=== PATIENT | female | born 1930 | race Caucasian/White ===

== ENCOUNTER 2016-06-19 14:01 | Outpatient (CLI) | payer MEDICARE, BC | END 2016-06-19 14:02 | disposition critical access hospital (66) | DX: M25.551 Pain in right hip (principal); W18.30XA Fall on same level, unspecified, initial encounter; Y92.481 Parking lot as the place of occurrence of the external cause | CPT/HCPCS: A0425; A0429 ==

== ENCOUNTER 2016-06-19 14:17 | Inpatient (IN) | payer MEDICARE, BC ==
[2016-06-19] MEDS ORDERED: MORPHINE 2 MG/ML SYRINGE IVP STA ×3 (14:51→18:09)
[2016-06-19] MEDS ORDERED: ONDANSETRON 4 MG/2 ML VIAL IVP STA (14:51)
[2016-06-19] MEDS ORDERED: ONDANSETRON 4 MG/2 ML VIAL ONE (14:53)
[2016-06-19] MEDS ORDERED: MORPHINE 2 MG/ML SYRINGE ONE ×4 (14:53→18:13)
[2016-06-19] MEDS ORDERED: MORPHINE 2 MG/ML SYRINGE IM STA (15:11)
[2016-06-19] MEDS ORDERED: ONDANSETRON ODT 4 MG TABLET TL STA (15:11)
[2016-06-19] MEDS ORDERED: ONDANSETRON ODT 4 MG TABLET ONE (15:14)
[2016-06-19] MEDS ORDERED: ACETAMINOPHEN 325 MG TABLET PO PRN (16:08)
[2016-06-19] MEDS ORDERED: LORazepam 2 MG/ML SYRINGE IVP PRN (16:45)
[2016-06-19] MEDS: SODIUM CHLORIDE FLUSH 0.9% 10 ML SYRINGE IVP SCH (19:23)
[2016-06-19] MEDS: SODIUM CHLORIDE 0.9% 1,000 ML IV SCH (19:23)
[2016-06-19] MEDS: INSULIN ASPART 300 UNIT/3 ML PEN SUBQ SCH ×2 (19:38→21:56)
[2016-06-19] MEDS: PRAZOSIN 1 MG CAPSULE PO SCH (20:25)
[2016-06-19] MEDS: rOPINIRole 0.25 MG TABLET PO SCH (20:25)
[2016-06-19] MEDS: METOPROLOL TARTRATE 50 MG TABLET PO SCH (20:25)
[2016-06-19] MEDS: HYDROmorphone 1 MG/ML SYRINGE IVP PRN (20:28)
[2016-06-20] MEDS: HYDROmorphone 1 MG/ML SYRINGE IVP PRN ×3 (02:25→20:31)
[2016-06-20] MEDS ORDERED: SODIUM CHLORIDE 0.9% 250 ML IV ONE (06:25)
[2016-06-20] MEDS ORDERED: FUROSEMIDE 20 MG/2 ML VIAL IVP STA (06:26)
[2016-06-20] MEDS: SODIUM CHLORIDE 0.9% 1,000 ML IV SCH ×2 (06:47→18:01)
[2016-06-20] MEDS: SODIUM CHLORIDE FLUSH 0.9% 10 ML SYRINGE IVP SCH ×3 (06:49→20:39)
[2016-06-20] MEDS: SODIUM CHLORIDE FLUSH 0.9% 10 ML SYRINGE IVP PRN (06:55)
[2016-06-20] MEDS: POLYETHYLENE GLYCOL 3350 17 GM PACKET PO SCH (08:36)
[2016-06-20] MEDS: FAMOTIDINE 20 MG TABLET PO SCH (08:37)
[2016-06-20] MEDS: hydroCHLOROthiazide 25 MG TABLET PO SCH (08:37)
[2016-06-20] MEDS: METOPROLOL TARTRATE 50 MG TABLET PO SCH ×2 (08:37→20:34)
[2016-06-20] MEDS: INSULIN ASPART 300 UNIT/3 ML PEN SUBQ SCH ×6 (08:38→20:32)
[2016-06-20] MEDS: rOPINIRole 0.25 MG TABLET PO SCH (20:34)
[2016-06-20] MEDS: PRAZOSIN 1 MG CAPSULE PO SCH (20:38)
[2016-06-21] MEDS: SODIUM CHLORIDE 0.9% 1,000 ML IV SCH (06:27)
[2016-06-21] MEDS: SODIUM CHLORIDE FLUSH 0.9% 10 ML SYRINGE IVP SCH ×3 (06:27→20:15)
[2016-06-21] MEDS ORDERED: LIDOCAINE-PF 2% 10 ML AMP SUBQ ONE (07:55)
[2016-06-21] MEDS ORDERED: PROPOFOL 200 MG/20 ML VIAL IVP ONE (07:55)
[2016-06-21] MEDS ORDERED: MIDAZOLAM 2 MG/2 ML VIAL IVP ONE (07:55)
[2016-06-21] MEDS ORDERED: ONDANSETRON 4 MG/2 ML VIAL IVP ONE (07:55)
[2016-06-21] MEDS ORDERED: fentaNYL 100 MCG/2 ML VIAL IVP ONE (07:55)
[2016-06-21] MEDS ORDERED: ceFAZolin 1 GM VIAL IV ONE (07:55)
[2016-06-21] MEDS ORDERED: DEXAMETHASONE 4 MG/ML VIAL IVP ONE (07:55)
[2016-06-21] MEDS ORDERED: LACTATED RINGERS 1,000 ML IV ONE ×2 (08:12)
[2016-06-21] MEDS ORDERED: LIDOCAINE MPF 1%-EPI 1:200000 30 ML VIAL SUBQ ONE ×2 (08:12→08:40)
[2016-06-21] MEDS ORDERED: BUPIVACAINE 0.25%-EPI 1:200000 PF 30 ML VIAL SUBQ ONE (08:40)
[2016-06-21] MEDS ORDERED: BISACODYL 10 MG SUPP PR PRN (08:47)
[2016-06-21] MEDS ORDERED: SODIUM CHLORIDE FLUSH 0.9% 10 ML SYRINGE IVP PRN (08:47)
[2016-06-21] MEDS ORDERED: ONDANSETRON 4 MG/2 ML VIAL IVP PRN (08:47)
[2016-06-21] MEDS: HYDROmorphone 1 MG/ML SYRINGE ONE ×2 (08:56→09:20)
[2016-06-21] MEDS: HYDROmorphone 1 MG/ML SYRINGE IVP PRN ×2 (10:42→17:04)
[2016-06-21] MEDS: SODIUM CHLORIDE 0.45% 1,000 ML IV SCH ×2 (10:55→22:28)
[2016-06-21] MEDS ORDERED: hydrALAZINE INJ 20 MG/ML VIAL IVP ONE (11:30)
[2016-06-21] MEDS: INSULIN ASPART 300 UNIT/3 ML PEN SUBQ SCH ×7 (13:09→20:05)
[2016-06-21] MEDS ORDERED: SODIUM CHLORIDE FLUSH 0.9% 10 ML SYRINGE IVP SCH (14:00)
[2016-06-21] MEDS: FAMOTIDINE 20 MG TABLET PO SCH (15:00)
[2016-06-21] MEDS: ALLOPURINOL 100 MG TABLET PO SCH (15:00)
[2016-06-21] MEDS: ASPIRIN 325 MG TABLET PO SCH ×2 (15:00→20:07)
[2016-06-21] MEDS: FUROSEMIDE 20 MG TABLET PO SCH (15:01)
[2016-06-21] MEDS: hydroCHLOROthiazide 25 MG TABLET PO SCH (15:01)
[2016-06-21] MEDS: POLYETHYLENE GLYCOL 3350 17 GM PACKET PO SCH (15:01)
[2016-06-21] MEDS: LISINOPRIL 5 MG TABLET PO SCH ×2 (15:01→19:39)
[2016-06-21] MEDS ORDERED: hydrALAZINE INJ 20 MG/ML VIAL IVP PRN (15:09)
[2016-06-21] MEDS ORDERED: FUROSEMIDE 20 MG/2 ML VIAL IVP ONE (16:00)
[2016-06-21] MEDS ORDERED: FUROSEMIDE 40 MG/4 ML VIAL ONE (17:11)
[2016-06-21] MEDS: ceFAZolin 2 GM/50 ML 50 ML IV SCH (17:22)
[2016-06-21] MEDS ORDERED: FUROSEMIDE 20 MG/2 ML VIAL IVP SCH (18:00)
[2016-06-21] MEDS: PRAZOSIN 1 MG CAPSULE PO SCH (19:39)
[2016-06-21] MEDS: rOPINIRole 0.25 MG TABLET PO SCH (20:07)
[2016-06-21] MEDS: ATORVASTATIN 10 MG TABLET PO SCH (20:07)
[2016-06-21] MEDS: METOPROLOL TARTRATE 50 MG TABLET PO SCH (20:07)
[2016-06-21] MEDS: OPTH EACHEYE SCH (20:09)
[2016-06-21] MEDS: LATANOPROST 0.005% EACHEYE SCH (20:09)
[2016-06-21] MEDS ORDERED: METOPROLOL TARTRATE 50 MG TABLET PO SCH (21:00)
[2016-06-22] MEDS: ceFAZolin 2 GM/50 ML 50 ML IV SCH (00:27)
[2016-06-22] MEDS: SODIUM CHLORIDE FLUSH 0.9% 10 ML SYRINGE IVP SCH ×3 (01:41→21:09)
[2016-06-22] MEDS: HYDROmorphone 1 MG/ML SYRINGE IVP PRN ×4 (01:55→17:14)
[2016-06-22] MEDS: INSULIN ASPART 300 UNIT/3 ML PEN SUBQ SCH ×7 (09:19→21:42)
[2016-06-22] MEDS: ALLOPURINOL 100 MG TABLET PO SCH (09:21)
[2016-06-22] MEDS: LISINOPRIL 5 MG TABLET PO SCH ×2 (09:21→21:01)
[2016-06-22] MEDS: SODIUM CHLORIDE FLUSH 0.9% 10 ML SYRINGE IVP PRN ×3 (09:22→17:47)
[2016-06-22] MEDS: ASPIRIN 325 MG TABLET PO SCH ×2 (09:25→21:02)
[2016-06-22] MEDS: hydroCHLOROthiazide 25 MG TABLET PO SCH (09:31)
[2016-06-22] MEDS: FUROSEMIDE 20 MG TABLET PO SCH ×2 (09:31→21:00)
[2016-06-22] MEDS: FAMOTIDINE 20 MG TABLET PO SCH (09:31)
[2016-06-22] MEDS: METOPROLOL TARTRATE 50 MG TABLET PO SCH ×2 (09:32→21:01)
[2016-06-22] MEDS: POLYETHYLENE GLYCOL 3350 17 GM PACKET PO SCH (09:35)
[2016-06-22] MEDS: SODIUM CHLORIDE 0.45% 1,000 ML IV SCH (12:29)
[2016-06-22] MEDS: OPTH EACHEYE SCH (21:00)
[2016-06-22] MEDS: LATANOPROST 0.005% EACHEYE SCH (21:00)
[2016-06-22] MEDS: rOPINIRole 0.25 MG TABLET PO SCH (21:01)
[2016-06-22] MEDS: PRAZOSIN 1 MG CAPSULE PO SCH (21:01)
[2016-06-22] MEDS: ATORVASTATIN 10 MG TABLET PO SCH (21:01)
[2016-06-23] MEDS ORDERED: HYDROmorphone 2 MG TABLET ONE (14:02)
[2016-06-23] MEDS: INSULIN ASPART 300 UNIT/3 ML PEN SUBQ SCH ×7 (17:15→21:27)
[2016-06-23] MEDS: SODIUM CHLORIDE FLUSH 0.9% 10 ML SYRINGE IVP SCH ×3 (17:15→21:28)
[2016-06-23] MEDS: hydroCHLOROthiazide 25 MG TABLET PO SCH (17:16)
[2016-06-23] MEDS: LISINOPRIL 5 MG TABLET PO SCH ×2 (17:16→21:29)
[2016-06-23] MEDS: FUROSEMIDE 20 MG TABLET PO SCH ×2 (17:16→21:29)
[2016-06-23] MEDS: METOPROLOL TARTRATE 50 MG TABLET PO SCH ×2 (17:16→21:28)
[2016-06-23] MEDS: FAMOTIDINE 20 MG TABLET PO SCH (17:16)
[2016-06-23] MEDS: POLYETHYLENE GLYCOL 3350 17 GM PACKET PO SCH (17:16)
[2016-06-23] MEDS: ASPIRIN 325 MG TABLET PO SCH ×2 (17:16→21:29)
[2016-06-23] MEDS: ALLOPURINOL 100 MG TABLET PO SCH (17:16)
[2016-06-23] MEDS: PRAZOSIN 1 MG CAPSULE PO SCH (21:28)
[2016-06-23] MEDS: ATORVASTATIN 10 MG TABLET PO SCH (21:28)
[2016-06-23] MEDS: LATANOPROST 0.005% EACHEYE SCH (21:29)
[2016-06-23] MEDS: OPTH EACHEYE SCH (21:29)
[2016-06-23] MEDS: rOPINIRole 0.25 MG TABLET PO SCH (21:29)
[2016-06-24] MEDS: SODIUM CHLORIDE FLUSH 0.9% 10 ML SYRINGE IVP SCH ×3 (07:33→20:52)
[2016-06-24] MEDS ORDERED: MAGNESIUM HYDROXIDE 2,400 MG/30 ML UDC PO ONE (08:30)
[2016-06-24] MEDS ORDERED: DOCUSATE SODIUM 250 MG CAPSULE PO ONE (08:30)
[2016-06-24] MEDS: LISINOPRIL 5 MG TABLET PO SCH ×2 (08:48→20:50)
[2016-06-24] MEDS: ALLOPURINOL 100 MG TABLET PO SCH (08:48)
[2016-06-24] MEDS: ASPIRIN 325 MG TABLET PO SCH ×2 (08:48→20:50)
[2016-06-24] MEDS: hydroCHLOROthiazide 25 MG TABLET PO SCH (08:48)
[2016-06-24] MEDS: METOPROLOL TARTRATE 50 MG TABLET PO SCH ×2 (08:49→20:47)
[2016-06-24] MEDS: FUROSEMIDE 20 MG TABLET PO SCH ×2 (08:49→20:50)
[2016-06-24] MEDS: FAMOTIDINE 20 MG TABLET PO SCH (08:49)
[2016-06-24] MEDS: POLYETHYLENE GLYCOL 3350 17 GM PACKET PO SCH (08:51)
[2016-06-24] MEDS: INSULIN ASPART 300 UNIT/3 ML PEN SUBQ SCH ×6 (08:51→20:57)
[2016-06-24] MEDS: SENNA 8.6 MG TABLET PO PRN (08:51)
[2016-06-24] MEDS: HYDROmorphone 1 MG/ML SYRINGE IVP PRN (10:35)
[2016-06-24] MEDS: ACETAMINOPHEN 325 MG TABLET PO PRN (10:36)
[2016-06-24] MEDS ORDERED: INSULIN ASPART 300 UNIT/3 ML PEN SUBQ SCH (12:32)
[2016-06-24] MEDS: ATORVASTATIN 10 MG TABLET PO SCH (20:50)
[2016-06-24] MEDS: PRAZOSIN 1 MG CAPSULE PO SCH (20:50)
[2016-06-24] MEDS: rOPINIRole 0.25 MG TABLET PO SCH (20:50)
[2016-06-24] MEDS: LATANOPROST 0.005% EACHEYE SCH (20:56)
[2016-06-24] MEDS: OPTH EACHEYE SCH (20:56)
[2016-06-25] MEDS: SODIUM CHLORIDE FLUSH 0.9% 10 ML SYRINGE IVP SCH ×3 (05:36→21:19)
[2016-06-25] MEDS: HYDROmorphone 2 MG TABLET PO PRN (08:00)
[2016-06-25] MEDS: ACETAMINOPHEN 325 MG TABLET PO PRN (08:00)
[2016-06-25] MEDS ORDERED: MAGNESIUM HYDROXIDE 2,400 MG/30 ML UDC PO ONE (09:28)
[2016-06-25] MEDS: INSULIN ASPART 300 UNIT/3 ML PEN SUBQ SCH ×6 (10:24→22:15)
[2016-06-25] MEDS: POLYETHYLENE GLYCOL 3350 17 GM PACKET PO SCH (10:26)
[2016-06-25] MEDS: ASPIRIN 325 MG TABLET PO SCH ×2 (10:26→21:10)
[2016-06-25] MEDS: DOCUSATE SODIUM 250 MG CAPSULE PO SCH (10:27)
[2016-06-25] MEDS: METOPROLOL TARTRATE 50 MG TABLET PO SCH ×2 (10:31→21:10)
[2016-06-25] MEDS: SENNA 8.6 MG TABLET PO PRN (10:32)
[2016-06-25] MEDS: ALLOPURINOL 100 MG TABLET PO SCH (10:32)
[2016-06-25] MEDS: LISINOPRIL 5 MG TABLET PO SCH ×2 (10:33→21:10)
[2016-06-25] MEDS: hydroCHLOROthiazide 25 MG TABLET PO SCH (10:33)
[2016-06-25] MEDS: FAMOTIDINE 20 MG TABLET PO SCH (10:33)
[2016-06-25] MEDS: FUROSEMIDE 20 MG TABLET PO SCH ×2 (10:33→21:10)
[2016-06-25] MEDS: HYDROmorphone 1 MG/ML SYRINGE IVP PRN ×2 (10:57→21:27)
[2016-06-25] MEDS: SODIUM CHLORIDE FLUSH 0.9% 10 ML SYRINGE IVP PRN ×2 (10:57→21:28)
[2016-06-25] MEDS: hydrALAZINE INJ 20 MG/ML VIAL IVP PRN (17:21)
[2016-06-25] MEDS: ATORVASTATIN 10 MG TABLET PO SCH (21:10)
[2016-06-25] MEDS: rOPINIRole 0.25 MG TABLET PO SCH (21:10)
[2016-06-25] MEDS: PRAZOSIN 1 MG CAPSULE PO SCH (21:18)
[2016-06-25] MEDS: OPTH EACHEYE SCH (21:18)
[2016-06-25] MEDS: LATANOPROST 0.005% EACHEYE SCH (21:18)
[2016-06-26] MEDS: SODIUM CHLORIDE FLUSH 0.9% 10 ML SYRINGE IVP SCH ×3 (06:40→20:28)
[2016-06-26] MEDS: hydrALAZINE INJ 20 MG/ML VIAL IVP PRN (07:40)
[2016-06-26] MEDS: INSULIN ASPART 300 UNIT/3 ML PEN SUBQ SCH ×7 (07:56→21:42)
[2016-06-26] MEDS: DOCUSATE SODIUM 250 MG CAPSULE PO SCH (08:11)
[2016-06-26] MEDS: FAMOTIDINE 20 MG TABLET PO SCH (08:11)
[2016-06-26] MEDS: ASPIRIN 325 MG TABLET PO SCH ×2 (08:11→20:06)
[2016-06-26] MEDS: FUROSEMIDE 20 MG TABLET PO SCH ×2 (08:11→20:06)
[2016-06-26] MEDS: METOPROLOL TARTRATE 50 MG TABLET PO SCH ×2 (08:12→20:07)
[2016-06-26] MEDS: hydroCHLOROthiazide 25 MG TABLET PO SCH (08:12)
[2016-06-26] MEDS: ALLOPURINOL 100 MG TABLET PO SCH (08:12)
[2016-06-26] MEDS: LISINOPRIL 5 MG TABLET PO SCH ×2 (08:12→20:07)
[2016-06-26] MEDS: POLYETHYLENE GLYCOL 3350 17 GM PACKET PO SCH (08:12)
[2016-06-26] MEDS: HYDROmorphone 1 MG/ML SYRINGE IVP PRN ×3 (08:19→17:21)
[2016-06-26] MEDS ORDERED: INSULIN GLARGINE 300 UNIT/3 ML PEN SUBQ SCH (11:30)
[2016-06-26] MEDS ORDERED: SODIUM CHLORIDE 0.45% 1,000 ML IV SCH (15:00)
[2016-06-26] MEDS ORDERED: PRAZOSIN 1 MG CAPSULE PO SCH (18:00)
[2016-06-26] MEDS: rOPINIRole 0.25 MG TABLET PO SCH (20:06)
[2016-06-26] MEDS: ATORVASTATIN 10 MG TABLET PO SCH (20:06)
[2016-06-26] MEDS: PRAZOSIN 1 MG CAPSULE PO SCH (20:07)
[2016-06-26] MEDS: LATANOPROST 0.005% EACHEYE SCH (20:14)
[2016-06-26] MEDS: OPTH EACHEYE SCH (20:14)
[2016-06-27] MEDS: SODIUM CHLORIDE FLUSH 0.9% 10 ML SYRINGE IVP PRN (00:05)
[2016-06-27] MEDS: SODIUM CHLORIDE FLUSH 0.9% 10 ML SYRINGE IVP SCH (04:58)
[2016-06-27] MEDS: HYDROmorphone 1 MG/ML SYRINGE IVP PRN (04:58)
[2016-06-27] MEDS: hydroCHLOROthiazide 25 MG TABLET PO SCH (08:08)
[2016-06-27] MEDS: HYDROmorphone 2 MG TABLET PO PRN ×3 (08:08→15:35)
[2016-06-27] MEDS: METOPROLOL TARTRATE 50 MG TABLET PO SCH (08:09)
[2016-06-27] MEDS: LISINOPRIL 5 MG TABLET PO SCH (08:09)
[2016-06-27] MEDS: ASPIRIN 325 MG TABLET PO SCH (08:09)
[2016-06-27] MEDS: FUROSEMIDE 20 MG TABLET PO SCH (08:09)
[2016-06-27] MEDS: ALLOPURINOL 100 MG TABLET PO SCH (08:09)
[2016-06-27] MEDS: INSULIN ASPART 300 UNIT/3 ML PEN SUBQ SCH ×4 (08:10→12:07)
[2016-06-27] MEDS: FAMOTIDINE 20 MG TABLET PO SCH (08:10)
[2016-06-27] MEDS: POLYETHYLENE GLYCOL 3350 17 GM PACKET PO SCH (08:10)
[2016-06-27] MEDS: DOCUSATE SODIUM 250 MG CAPSULE PO SCH (08:10)
[2016-06-27] MEDS: PRAZOSIN 1 MG CAPSULE PO SCH (08:12)
== END 2016-06-27 15:35 | DRG 481 ==
PROC: 0QS636Z Reposition Right Upper Femur with Intramedullary Internal Fixation Device, Percutaneous Approach (ICD-10-PCS; principal; 2016-06-21 07:30)
DX: S72.141A Displaced intertrochanteric fracture of right femur, initial encounter for closed fracture (principal); N17.9 Acute kidney failure, unspecified; D62 Acute posthemorrhagic anemia; M96.89 Other intraoperative and postprocedural complications and disorders of the musculoskeletal system; I10 Essential (primary) hypertension; E11.9 Type 2 diabetes mellitus without complications; I50.1 Left ventricular failure, unspecified; S42.224A 2-part nondisplaced fracture of surgical neck of right humerus, initial encounter for closed fracture; S72.121A Displaced fracture of lesser trochanter of right femur, initial encounter for closed fracture; W18.30XA Fall on same level, unspecified, initial encounter; Y92.481 Parking lot as the place of occurrence of the external cause; R55 Syncope and collapse; E87.5 Hyperkalemia; M75.01 Adhesive capsulitis of right shoulder; I13.10 Hypertensive heart and chronic kidney disease without heart failure, with stage 1 through stage 4 chronic kidney disease, or unspecified chronic kidney disease; E11.22 Type 2 diabetes mellitus with diabetic chronic kidney disease; N18.3 Chronic kidney disease, stage 3 (moderate); E11.65 Type 2 diabetes mellitus with hyperglycemia; E78.2 Mixed hyperlipidemia; E66.09 Other obesity due to excess calories; I35.0 Nonrheumatic aortic (valve) stenosis; F32.89 Other specified depressive episodes; G25.81 Restless legs syndrome; I65.23 Occlusion and stenosis of bilateral carotid arteries; F41.9 Anxiety disorder, unspecified; M15.0 Primary generalized (osteo)arthritis; Y83.8 Other surgical procedures as the cause of abnormal reaction of the patient, or of later complication, without mention of misadventure at the time of the procedure; Y92.234 Operating room of hospital as the place of occurrence of the external cause; Z66 Do not resuscitate; Z79.82 Long term (current) use of aspirin; Z68.33 Body mass index [BMI] 33.0-33.9, adult; Z87.891 Personal history of nicotine dependence

== ENCOUNTER 2016-06-30 08:00 | Outpatient (CLI) | payer BC, MEDICARE, OTHER | END 2016-06-30 23:59 | DX: N18.9 Chronic kidney disease, unspecified (principal); D64.9 Anemia, unspecified; E83.42 Hypomagnesemia; M1A.9XX0 Chronic gout, unspecified, without tophus (tophi) ==

== ENCOUNTER 2016-07-03 | Outpatient (CLI) | payer MEDICARE, BC | END 2016-07-03 14:09 | disposition critical access hospital (66) | DX: R29.810 Facial weakness (principal) | CPT/HCPCS: A0425; A0429 ==

== ENCOUNTER 2016-07-03 14:11 | Observation (INO) | payer MEDICARE, BC ==
[2016-07-03] MEDS ORDERED: SODIUM CHLORIDE 0.9% 1,000 ML IV ONE (16:14)
[2016-07-03] MEDS ORDERED: SODIUM CHLORIDE FLUSH 0.9% 10 ML SYRINGE IVP PRN (16:45)
[2016-07-03] MEDS ORDERED: ONDANSETRON ODT 4 MG TABLET TL PRN (16:45)
[2016-07-03] MEDS ORDERED: DEXTROSE 50% ABBOJECT 25 GM/50 ML SYRINGE IVP PRN (18:38)
[2016-07-03] MEDS ORDERED: DEXTROSE GEL 37.5 GM TUBE PO PRN (18:38)
[2016-07-03] MEDS ORDERED: DEXTROSE 5% 1,000 ML IV PRN (18:38)
[2016-07-03] MEDS ORDERED: GLUCAGON 1 MG/ML VIAL SUBQ PRN (18:38)
[2016-07-03] MEDS: SODIUM CHLORIDE 0.9% 1,000 ML IV SCH ×2 (18:54→18:57)
[2016-07-03] MEDS ORDERED: MIN OIL/DIMETHICON/COCONUT OIL 92 GM TUBE TOP PRN (19:35)
[2016-07-03] MEDS: rOPINIRole 0.25 MG TABLET PO SCH (21:39)
[2016-07-03] MEDS: ATORVASTATIN 10 MG TABLET PO SCH (21:40)
[2016-07-03] MEDS: NITROFURANTOIN MACRO 100 MG CAPSULE PO SCH (21:40)
[2016-07-03] MEDS: LATANOPROST 0.005% OPHTH DROPS EACHEYE SCH (21:40)
[2016-07-03] MEDS: INSULIN ASPART 300 UNIT/3 ML PEN SUBQ SCH (21:40)
[2016-07-03] MEDS: PRAZOSIN 1 MG CAPSULE PO SCH (21:40)
[2016-07-03] MEDS: METOPROLOL TARTRATE 50 MG TABLET PO SCH (21:41)
[2016-07-03] MEDS: SODIUM CHLORIDE FLUSH 0.9% 10 ML SYRINGE IVP SCH (21:44)
[2016-07-03] MEDS: HYDROcod/ACETAM 5/325 MG TABLET PO PRN (21:48)
[2016-07-04] MEDS: ACETAMINOPHEN 325 MG TABLET PO PRN ×2 (00:26→15:52)
[2016-07-04] MEDS: HYDROcod/ACETAM 5/325 MG TABLET PO PRN ×5 (04:17→22:42)
[2016-07-04] MEDS: SODIUM CHLORIDE 0.9% 1,000 ML IV SCH ×2 (04:17→15:30)
[2016-07-04] MEDS: SODIUM CHLORIDE FLUSH 0.9% 10 ML SYRINGE IVP SCH ×3 (06:40→22:18)
[2016-07-04] MEDS ORDERED: ENOXAPARIN 40 MG/0.4 ML SYRINGE SUBQ SCH (09:00)
[2016-07-04] MEDS: INSULIN ASPART 300 UNIT/3 ML PEN SUBQ SCH ×4 (09:06→22:17)
[2016-07-04] MEDS: ONDANSETRON 4 MG/2 ML VIAL IVP PRN (09:35)
[2016-07-04] MEDS: ALLOPURINOL 100 MG TABLET PO SCH (11:02)
[2016-07-04] MEDS: NITROFURANTOIN MACRO 100 MG CAPSULE PO SCH ×2 (11:02→22:41)
[2016-07-04] MEDS: PRAZOSIN 1 MG CAPSULE PO SCH ×2 (11:02→22:41)
[2016-07-04] MEDS: DOCUSATE SODIUM 250 MG CAPSULE PO SCH (11:02)
[2016-07-04] MEDS: SENNA 8.6 MG TABLET PO SCH (11:03)
[2016-07-04] MEDS: METOPROLOL TARTRATE 50 MG TABLET PO SCH ×2 (11:03→22:45)
[2016-07-04] MEDS: POLYETHYLENE GLYCOL 3350 17 GM PACKET PO SCH (11:03)
[2016-07-04] MEDS: ENOXAPARIN 30 MG/0.3 ML SYRINGE SUBQ SCH (11:04)
[2016-07-04] MEDS: ASPIRIN CHEW 81 MG TABLET PO SCH (11:04)
[2016-07-04] MEDS ORDERED: PROCHLORPERAZINE 10 MG/2 ML VIAL IVP PRN (12:29)
[2016-07-04] MEDS ORDERED: PROCHLORPERAZINE 5 MG TABLET PO PRN (12:29)
[2016-07-04] MEDS: KETOROLAC 15 MG/ML VIAL IVP PRN (20:58)
[2016-07-04] MEDS ORDERED: MIRTAZAPINE 15 MG TABLET PO SCH (21:00)
[2016-07-04] MEDS: LATANOPROST 0.005% OPHTH DROPS EACHEYE SCH (22:40)
[2016-07-04] MEDS: ATORVASTATIN 10 MG TABLET PO SCH (22:40)
[2016-07-04] MEDS: rOPINIRole 0.25 MG TABLET PO SCH (22:41)
[2016-07-05] MEDS: SODIUM CHLORIDE 0.9% 1,000 ML IV SCH ×2 (00:13→01:07)
[2016-07-05] MEDS: SODIUM CHLORIDE FLUSH 0.9% 10 ML SYRINGE IVP SCH ×2 (07:10→12:58)
[2016-07-05] MEDS: ONDANSETRON 4 MG/2 ML VIAL IVP PRN (07:37)
[2016-07-05] MEDS: KETOROLAC 15 MG/ML VIAL IVP PRN (07:38)
[2016-07-05] MEDS: HYDROcod/ACETAM 5/325 MG TABLET PO PRN ×2 (07:38→12:25)
[2016-07-05] MEDS: INSULIN ASPART 300 UNIT/3 ML PEN SUBQ SCH ×2 (07:46→12:25)
[2016-07-05] MEDS: SENNA 8.6 MG TABLET PO SCH (09:13)
[2016-07-05] MEDS: NITROFURANTOIN MACRO 100 MG CAPSULE PO SCH (09:13)
[2016-07-05] MEDS: ENOXAPARIN 30 MG/0.3 ML SYRINGE SUBQ SCH (09:13)
[2016-07-05] MEDS: ALLOPURINOL 100 MG TABLET PO SCH (09:14)
[2016-07-05] MEDS: DOCUSATE SODIUM 250 MG CAPSULE PO SCH (09:14)
[2016-07-05] MEDS: METOPROLOL TARTRATE 50 MG TABLET PO SCH (09:14)
[2016-07-05] MEDS: PRAZOSIN 1 MG CAPSULE PO SCH (09:14)
[2016-07-05] MEDS: POLYETHYLENE GLYCOL 3350 17 GM PACKET PO SCH (09:15)
[2016-07-05] MEDS: ASPIRIN CHEW 81 MG TABLET PO SCH (09:15)
[2016-07-05] MEDS ORDERED: CIPROFLOXACIN 250 MG TABLET PO SCH (12:00)
== END 2016-07-05 15:25 ==
DX: N17.9 Acute kidney failure, unspecified (principal); E86.0 Dehydration; T50.2X5A Adverse effect of carbonic-anhydrase inhibitors, benzothiadiazides and other diuretics, initial encounter; I12.9 Hypertensive chronic kidney disease with stage 1 through stage 4 chronic kidney disease, or unspecified chronic kidney disease; N18.3 Chronic kidney disease, stage 3 (moderate); N30.01 Acute cystitis with hematuria; B96.20 Unspecified Escherichia coli [E. coli] as the cause of diseases classified elsewhere; B96.1 Klebsiella pneumoniae [K. pneumoniae] as the cause of diseases classified elsewhere; E11.65 Type 2 diabetes mellitus with hyperglycemia; E11.42 Type 2 diabetes mellitus with diabetic polyneuropathy; S72.141D Displaced intertrochanteric fracture of right femur, subsequent encounter for closed fracture with routine healing; S72.121D Displaced fracture of lesser trochanter of right femur, subsequent encounter for closed fracture with routine healing; W19.XXXD Unspecified fall, subsequent encounter; F43.21 Adjustment disorder with depressed mood; I35.0 Nonrheumatic aortic (valve) stenosis; R29.810 Facial weakness; S42.201D Unspecified fracture of upper end of right humerus, subsequent encounter for fracture with routine healing; Y83.8 Other surgical procedures as the cause of abnormal reaction of the patient, or of later complication, without mention of misadventure at the time of the procedure; E87.1 Hypo-osmolality and hyponatremia; E78.5 Hyperlipidemia, unspecified; F41.9 Anxiety disorder, unspecified; G25.81 Restless legs syndrome; R32 Unspecified urinary incontinence; Z16.23 Resistance to quinolones and fluoroquinolones; Z79.82 Long term (current) use of aspirin; Z87.891 Personal history of nicotine dependence; Z66 Do not resuscitate
CPT/HCPCS: 36415; 70450; 73060; 73501; 80048; 80053; 81001; 83036; 83690; 83880; 84484; 85025; 87077; 87086; 87181; 93005; 93010; 96361; 96372; 96374; 96375; 96376; 97163; 99284; 99285; A6250; A9270; G0378; G8978; G8979; J1650

== ENCOUNTER 2016-07-11 | Outpatient (CLI) | payer MEDICARE, OTHER | END 2016-07-11 10:01 | disposition home or self-care (01) ==

== ENCOUNTER 2016-07-12 18:35 | Outpatient (CLI) | payer BC, MEDICARE, OTHER | END 2016-07-12 18:36 | disposition home or self-care (01) | DX: I10 Essential (primary) hypertension (principal); N18.9 Chronic kidney disease, unspecified ==

== ENCOUNTER 2016-07-16 12:51 | Outpatient (CLI) | payer BC, MEDICARE, OTHER | END 2016-07-16 12:52 | disposition home or self-care (01) | DX: N39.0 Urinary tract infection, site not specified (principal) ==

== ENCOUNTER 2016-08-25 08:00 | Outpatient (CLI) | payer MEDICARE, OTHER | END 2016-08-25 23:59 | DX: N18.9 Chronic kidney disease, unspecified (principal); D64.9 Anemia, unspecified; M1A.9XX0 Chronic gout, unspecified, without tophus (tophi); F32.9 Major depressive disorder, single episode, unspecified; E83.49 Other disorders of magnesium metabolism; E55.9 Vitamin D deficiency, unspecified ==

== ENCOUNTER 2016-09-07 08:40 | Outpatient (CLI) | payer MEDICARE, OTHER | END 2016-09-07 08:41 | disposition home or self-care (01) | DX: N18.9 Chronic kidney disease, unspecified (principal); E11.9 Type 2 diabetes mellitus without complications; G25.81 Restless legs syndrome; M1A.9XX0 Chronic gout, unspecified, without tophus (tophi) ==

== ENCOUNTER 2016-09-24 12:20 | Outpatient (CLI) | payer OTHER | END 2016-09-24 12:21 | disposition home or self-care (01) | DX: M1A.9XX0 Chronic gout, unspecified, without tophus (tophi) (principal) ==

== ENCOUNTER 2017-12-18 10:40 | Outpatient (CLI) | payer MEDICARE, BC ==
--- NOTE | 2017-12-18 16:35 | CONSULTATION NOTE ---
Palliative Care Consultation - Referral Referring Provider: Dr Jacqueline Abraham Time of Visit: 12/18/2017. 10:40 - 11:30 Referral setting: Assisted living (Seen in home setting due to taxing and considerable effort required to leave the home due to immobility and being bed bound secondary to advancing dementia, anorexia, and debility.) Referral Reason: Anorexia, significant weight loss, functional decline - Information Sources Records reviewed: RN notes reviewed, Previous records reviewed History/Review of Systems obtained from: Family, Caregiver, Nursing Exam limitations: Clinical condition (Non-rousable; dementia) - History of Present Illness Brief History of Present Illness: -87 year old woman was on hospice from July 13, 2017 to October 30, 2017. -She was originally admitted to Hospice with diagnoses of malnutrition, DMII, CKD III, dementia, depression, HTN and non-rheumatic aortic valve stenosis, and chronic pain syndrome, osteopenia. -Prior to the June admission to Hospice, whe had a rapid 10-lb weight loss in one month, and dark, blackish stool, as well as buttock/cocyx excoriation and deeptissue pressure wound to R heel. -Omeprazole 20mg resolved the black stool issue,The buttock/coccyx wound did not resolve to due continued incontinence and total bed-bound statue. R heel injury did resolve with wound care and improved caloric intake. -Patient stabilized and improved sufficiently so that she was discharged from Hospice October 2017. -Patient unfortunately has had a steady weight loss since discharging from Hospice. -She has lost 15.8% (22.9 lbs) of her weight since September (less than 3 months), including 10 lbs in the past week. See ROS for details. -Today patient is in bed with HOB elevated. She is profoundly somnolent and non- rousable by voice or gentle touching. At only one point she made an unintelligible verbal response. Her eyes remained closed the entire visit. -Lips are dry, hands and feet are warm, no mottling of skin. -Caregivers and nursing report refusing food in the past few days; prior to that she was eating only a few mouthfuls at each meal, refusing the rest. -Last week she was alert, had animated conversations with the caregiver. She does spend most of her time in her room. -For the past few days she has become non-responsive, refusing help or interaction. -She made the statement to one of the caregivers, "Just let me ." -Back on 07/04/2016 during a hospitalization, the hospitalist noted she was quiet , depressed, wished to be left alone; "she was old enough, had had a good life and that all of this rigamarole was too much. just let her go." Medical/Surgical History - Past Medical History Cardiovascular: reports: Hypertension, High cholesterol, Valve disorder (non- rheumatic aortic valve stenosis) Respiratory: reports: Shortness of breath Neuro: Dementia Endocrine/Autoimmune: reports: Type 2 diabetes GI: reports: None : reports: Incontinence HEENT: reports: Chronic vision loss, Chronic hearing loss Psych: reports: Depression, Anxiety Musculoskeletal: reports: Osteoarthritis, Osteopenia, Gout, Other (chronic pain syndrome) Derm: reports: None MRSA Hx?: No - Past Surgical History Ortho: reports: Hip replacement HEENT: reports: Tonsil/Adenoidectomy - Substance History Tobacco Details: Cigarettes (Smoked briefly age 29. No alcohol.) Social History - Living Situation Living arrangement: Assisted living ([facility]) Living Situation: With caregiver(s) Support System: Meredith Gonzales, daughter/DPOA, lives in [place]. [phone]. She is very involved in patient's care but unable to visit as frequently due to shoulder injury, or possibly hip injury, and some complications. Rosette Gonzales, daughter. H: [phone]. M: [phone]. Family History - Family History Family History Comment/Other: Mother age unknown, bilateral pneumonia. Father age 65, hit by drunk patient transportation driver. Medications/Allergies - Medications Home Medications: Ambulatory Orders Medication Instructions Recorded Confirmed Latanoprost [Xalatan] 1 drops EACHEYE QPM 06/19/16 12/18/17 Metoprolol Tartrate [Lopressor] 50 mg PO BID 06/19/16 12/18/17 Acetaminophen [Tylenol] 650 mg PO Q6H PRN 07/03/16 12/18/17 Senna [Senokot] 8.6 mg PO DAILY 07/03/16 12/18/17 Acetaminophen 650 mg RC Q6H PRN 12/18/17 12/18/17 Acetaminophen [Tylenol] 650 mg PO BID 12/18/17 12/18/17 Alum Mag Simeth Susp 30 ml PO Q4H PRN 12/18/17 Bisacodyl Supp [Dulcolax Supp] 10 mg [place] DAILY PRN 12/18/17 12/18/17 Gabapentin 600 mg PO BID 12/18/17 12/18/17 Guaifenesin/Dextromethorphan 5 ml PO Q6H PRN 12/18/17 12/18/17 [Tussin Dm Cough Syrup] Haloperidol Oral Soln [Haldol Oral 0.5 ml PO Q6H PRN 12/18/17 12/18/17 Soln] Hyoscyamine [Levsin] 0.125 mg SL Q4H PRN 12/18/17 12/18/17 LORazepam [Ativan] 0.5 mg PO Q6H PRN 12/18/17 12/18/17 Lactose-Reduced Food [Ensure 1 ea PO TID 12/18/17 12/18/17 Compact] Loperamide [Imodium] 4 mg PO PRN PRN MDD 8 tabs 12/18/17 12/18/17 Magnesium Hydroxide [Milk of 30 ml PO DAILY PRN 12/18/17 12/18/17 Magnesia] Menthol/Zinc Oxide [Calmoseptine 1 ea TOP BID MDD until resolved 12/18/17 Ointment] Morphine Sulfate [Morphine Sulf 0.25 ml PO Q4H PRN 12/18/17 12/18/17 Oral (Roxanol)] Nystatin 1 each TOP BID PRN 12/18/17 12/18/17 Omeprazole [PriLOSEC] 20 mg PO DAILY 12/18/17 12/18/17 Ondansetron [Ondansetron Odt] 4 mg PO Q6H PRN 12/18/17 12/18/17 Oxymetazoline HCl [Afrin] 1 sprays NS BID PRN 12/18/17 12/18/17 Polyethylene Glycol 3350 [Miralax] 17 g PO DAILY 12/18/17 12/18/17 Sertraline [Zoloft] 25 mg PO DAILY 12/18/17 12/18/17 - Allergies Allergies/Adverse Reactions: Allergies Allergy/AdvReac Type Severity Reaction Status Date / Time No Known Drug Allergies Allergy Verified 06/19/16 14:20 Review of Systems - Constitutional Constitutional: reports: Fatigue, Weakness, Weight loss (15.8% weight loss in less than 3 months (22.9 lbs), including 10 lbs in the past week. 122 lbs . 132 lbs 12/10/17. 130.3 lbs 12/03/17. 138.8 lbs 11/12/17. 138 bs 10/29/17. 143 lbs 10/22/17. 147 lbs 10/15/17. 145.4 lbs 10/08/17. 144.9 lbs 10/01/17.) - Ears, Nose & Throat Ears, Nose & Throat: reports: Hearing loss, Dry mouth - Cardiovascular Cardiovascular: reports: Decr. exercise tolerance - Gastrointestinal Gastrointestinal: denies: Constipation - Genitourinary Genitourinary: reports: Incontinence - Musculoskeletal Musculoskeletal: reports: Transfer issues, Other (Bedbound) - Neurological Neurological: reports: General weakness, Memory problems Physical Exam - Vital Signs Temperature: 96.7 F Pulse Rate: 76 O2 Saturation: 95 (room air) Blood Pressure: 132/75 - Physical Exam General Appearance: positive: Lethargic, Nonresponsive Eyes Bilateral: positive: Other (Eyes closed during entire visit) ENT: positive: Dry mucous membranes Neck: positive: Trachea midline Cardiovascular: positive: Regular rate & rhythm, Systolic murmur (2/6) Respiratory: positive: No respiratory distress, Diminished throughout Abdomen: positive: Non-tender, Soft, Nml bowel sounds, Other (solid, dark hunk of matter, or a growth, in umbilicus. Unable to remove it). negative: Distended Skin: positive: Dryness. negative: Mottled Extremities: negative: No pedal edema Neurologic/Psychiatric: positive: Disoriented to person, Disoriented to place, Disoriented to time, Other (Somnolent; non-rousable) Palliative Care - POLST Patient has POLST: Yes POLST Status: DNR, Comfort Measures Drowsiness/Sedation: Severe (7-10), Comment (Non-rousabe) Anorexia: Severe (7-10), Weight loss (15.8% decline in less than 3 months. See ROS.) Constipation: No Performance Status: Bed bound. Significant decline in function and LOC: non-verbal, lethargy, somnolent, refusing oral intake in past few days. - Palliative Care Discussion: Per the patient's daughter/POA, Meredith, she used to have animated conversations , now she doesn't speak, doesn't want any help with eating. Caregiver reports that the patient stated to leave her alone, let her . Daughter was surprised to hear this. However, the patient stated the same sentiments to a hospitalist back on 07/04/2016. The patient was just recently on Hospice up until October 30, 2017, having been discharged after she gained weight and her condition improved. Unfortunately her weight has steadily declined since then, and then precipitously over the past week, and especially during the past few days when she has refused all food /oral intake and become lethargic and largely unresponsive. The daughter agrees and approves of readmitting her mother back to Hospice. Impression and Recommendations - Palliative Care Impression: 87 year old woman, formerly on Hospice but discharged in October 2017 after weight gain and an improvement in her condition, has significantly declined, and also lost 15.8% of her weight in less than 3 months. She is bedbound, has had altered level of consciousness for a few days, and does not accept food or drink. Palliative care recommends transition back to Hospice; this meets family 's goals of keeping her comfortable, and she meets the medical criteria. Recommendations/Counseling Done: Protein calorie malnutrition: Steady weight loss since September 2017: 15.8% in less than 3 months, including 10 lbs in the past week. Patient has been eating only a few bites of food; now refuses all food for the past several days. Change of level of consciousness, sleeping most of time; remaining bedbound. DMII: Controlled non-medically. Chronic pain syndrome: Tylenol routine, PRN, and suppository. Morphine for pain and shortness of breath. Gabapentin BID. Anxiety: Morphine solution and lorazepam. Advanced care planning: Recommend transition to hospice based on precipitous decline in functionality and protein calorie malnutrition; telephoned Dr Abraham 's clinic for referral to hospice service. Patient currently has comfort medications available: morphine solution, lorazepam, haloperidol, hyoscyamine. Time Spent: 50 minutes were spent with more than 50% of the time spent on counseling, education, anticipatory guidance, and coordination of care.
== END 2017-12-18 10:41 | disposition home or self-care (01) ==
LOC: PC 10:40
PROVIDERS: ATTEND Nurse Practitioner
DX: Z51.5 Encounter for palliative care (principal); E46 Unspecified protein-calorie malnutrition; E11.9 Type 2 diabetes mellitus without complications; G89.4 Chronic pain syndrome; F41.9 Anxiety disorder, unspecified; Z74.01 Bed confinement status; F03.90 Unspecified dementia, unspecified severity, without behavioral disturbance, psychotic disturbance, mood disturbance, and anxiety; F32.9 Major depressive disorder, single episode, unspecified; Z87.891 Personal history of nicotine dependence; R63.4 Abnormal weight loss; R40.0 Somnolence; Z66 Do not resuscitate